=== PATIENT | female | born 1965 | race Caucasian/White ===

== ENCOUNTER → 2016-09-01 | Outpatient (CLI) | payer OTHER ==
[2016-09-01 11:59] LABS: AUTOMATED NEUTROPHIL # 2.9 TH/MM3 (1.8-7.7); BASOPHIL # 0.1 TH/MM3 (0-0.2); BASOPHIL % 0.9 % (0.0-2.0); EOSINOPHIL # 0.5 TH/MM3 (0-0.4); EOSINOPHIL % 8.1 % (0.0-4.0); HEMATOCRIT 40.2 % (35.0-46.0); HEMO FLAGS DIFF FINAL; LYMPH % 28.5 % (9.0-44.0); LYMPHOCYTE # 1.6 TH/MM3 (1.0-4.8); MEAN CELL VOLUME 87.5 FL (80.0-100.0); MEAN CORPUSCULAR HEMOGLOBIN 29.3 PG (27.0-34.0); MEAN CORPUSCULAR HGB CONC 33.5 % (32.0-36.0); NEUT % 50.5 % (16.0-70.0); PLATELET COUNT 278 TH/MM3 (150-450); RED CELL DISTRIBUTION WIDTH 13.2 % (11.6-17.2); WHITE BLOOD COUNT 5.7 TH/MM3 (4.0-11.0)
[2016-09-01 12:03] LABS: BLOOD, URINE NEG (NEG); GLUCOSE,URINE NEG (NEG); KETONE, URINE NEG (NEG); NITRITE,URINE NEG (NEG); SQUAMOUS EPITHELIAL CELL URINE <1 /hpf (0-5); URINE COLOR LIGHT-YELLOW (YELLW/STRAW)
[2016-09-01 12:22] LABS: BICARBONATE 26.7 MEQ/L (21.0-32.0); POTASSIUM 4.3 MEQ/L (3.5-5.1)
== END ==
LOC: CPRE 10:26
PROVIDERS: ATTEND Obstetrics & Gynecology
DX: Z01.812 Encounter for preprocedural laboratory examination (principal); N80.9 Endometriosis, unspecified
CPT/HCPCS: 36415; 80048; 81001; 84703; 85025

== ENCOUNTER → 2016-09-09 | Day surgery (SDC) | payer OTHER ==
[~2016-09-09] VITALS: Ht 175.3 cm; Wt 76.0 kg
[~2016-09-09] MED LIST: *HYDROmorphone PF 1 MG VIAL PERIprocedural Use ONLY ONE; *morphine SULFATE 8 MG/ML PERIprocedure ONLY ONE; ACETAMINOPHEN 1000 MG/100 ML VIAL IV ONE; ACETAMINOPHEN/HYDROcodone 325 MG/5 MG TAB PO PRN; APREPITANT 40 MG CAP PO SCH; BUPIVACAINE HCL PF 0.25% 30 ML VIAL ONE; CHLORHEXIDINE GLUCONATE 2 % 1 PACK (2 CLOTHS) TOPICAL PRN; DEXAMETHASONE SOD PHOS 4 MG/ML VIAL ONE; DO NOT ADM ANY ANTICOAGULANT DRUGS PRN; DOCUSATE SODIUM 100 MG CAP PO SCH; FAMOTIDINE 20 MG/2 ML VIAL ONE; HYDROmorphone HCL PF 1 MG/ML VIAL IVP PRN; IBUPROFEN 600 MG TAB PO PRN; INSULIN HUMAN REGULAR 1,000 UNITS/10 ML VIAL SQ PRN; KETOROLAC TROMETHAMINE 30 MG/ML (IVP) VIAL IVP PRN; KETOROLAC TROMETHAMINE 60 MG/2 ML (IM) VIAL IM ONE; LACTATED RINGER'S 1000 ML INJ 1,000 ML IV ONE; LACTATED RINGER'S 1000 ML INJ 1,000 ML IV SCH; LACTATED RINGER'S 1000 ML IV PRN; LORazepam 0.5 MG TAB PO PRN; METOPROLOL TARTRATE 25 MG TAB PO PRN; MIDAZOLAM HCL 2 MG/2 ML VIAL ONE; NEOSTIGMINE 3 MG/3 ML SYR IV ONE; ONDANSETRON HCL 4 MG/2 ML VIAL IV PUSH ONE; ONDANSETRON HCL 4 MG/2 ML VIAL IVP PRN; POVIDONE IODINE 5% (ANTISEPSIS KIT) 4 APPLICATIONS EACH NARE PRN; PROMETHAZINE INJ 25 MG/ML VIAL ONE; PROPOFOL 200 MG/20 ML AMP IV ONE; SODIUM CHLORID 0.9% 500 ML IV PRN; SODIUM CHLORIDE 0.9% FLUSH 10 ML FLUSH IV FLUSH PRN; SODIUM CHLORIDE 0.9% FLUSH 10 ML FLUSH IV FLUSH SCH; VECURONIUM BROMIDE 10 MG VIAL IV ONE; ceFAZolin 2 GM PREMIX 50 ML IV SCH; ePHEDrine/NS 25 MG/5 ML SYR IV ONE; fentaNYL CITRATE 250 MCG/5 ML AMP ONE; oxyCODONE/ACETAMINOPHEN 5 MG/325 MG TAB PO PRN
[2016-09-09 06:36] VITALS: BP 121/75; PULSE 66; RESP 16; TEMP 97.3; O2SAT 100
[2016-09-09 13:48] VITALS: BP 105/63; PULSE 77; RESP 16; TEMP 97.6; O2SAT 100
--- NOTE | 2016-09-10 07:36 | MP ---
cc: BALDOMERO ALLEN M.D., WESLEY M.D. DATE OF SURGERY 09/09/2016 PREOPERATIVE DIAGNOSIS Patient with chronic pelvic pain, history of endometriosis, previous left oophorectomy. PROCEDURE Exam under anesthesia, operative laparoscopy with total laparoscopic hysterectomy, right salpingo-oophorectomy, lysis of adhesions. POSTOPERATIVE DIAGNOSIS Patient with chronic pelvic pain, history of endometriosis, previous left oophorectomy. SURGEON Baldomero Allen MD ANESTHESIA General ESTIMATED BLOOD LOSS 50 cc DRAINS Leos to gravity SURGICAL SPECIMEN Included right tube and ovary uterus and cervix. OPERATIVE FINDINGS The patient had previous surgical scars from her left salpingo-oophorectomy. There was some minimal distortion of the right tube and ovary most likely secondary to endometriosis, but no significant distortion or adhesions. The patient had normal-appearing bladder. Both ureters were peristalsing and normal bilaterally. There was previous scar and adhesions involving the left sidewall and there was a small cystic lesion on the right ovary possibly an endometrioma. Upper quadrants appeared normal. There was some minimal scarring of the liver edge, otherwise no significant abdominal findings. INDICATIONS FOR PROCEDURE Patient with a chronic history of pelvic pain and back pain has a previous known history of endometriosis and previous left oophorectomy. After discussing the options and alternatives, the patient elected for definitive hysterectomy with removal of the remaining ovary and tube. The patient preoperatively received Ancef 2 grams intravenously. PROCEDURE DESCRIPTION The patient was taken to the operating room, under general anesthesia had an endotracheal tube placed. She was carefully positioned in the dorsolithotomy position using Jim stirrups with sequentials placed on the lower extremities. She was prepped and draped. Time-out was conducted, agreed by all present in the room. Procedure initiated by placing a Leos catheter under sterile technique. The patient was then placed in slight Trendelenburg positioning. A bivalve retractor was used to examine the cervix which was a medium sized. A V-Care device was utilized. Cervix was secured with a single-tooth tenaculum and placement of the V-Care was accomplished without difficulty. During the removal of the vaginal retractors, the patient developed an episodic bradycardia. Heart rate was in the mid 20s, responded to positioning and atropine. The patient had an arterial waveform monitor placed which was normal. The patient's vital signs remained normal. After resolution of the bradycardic episode. The procedure continued by draping the patient completely and examining the abdomen. 0.25% plain Marcaine was used to inject in the incision sites. First, the umbilical port was injected and then an incision was made through the umbilical plate. A 5 mm trocar was used to make entry into the perineal cavity which was accomplished without difficulty. Insufflation of the abdominal cavity was made at low pressure. Examination of the pelvis required placement and steep Trendelenburg positioning and again the patient's vital signs were stable. The accessory ports were placed using 8 mm trocars, two on the right flank and one on the right. The umbilical port was increased to a #12 trocar for the da Daniela camera. The da Daniela patient cart was then side docked with a #2 arm on the left and a #1 and #3 on the right. A bipolar [place] grasper was placed in #1 arm. A fenestrated grasper was placed in #3. The #2 arm had a monopolar scissor. A 0 degrees lens was used for the camera. No collisions or conflicts with the operative arms were noted. Attention was placed at the surgeon cart where visualization of pelvic anatomy was made. Good identification of all landmarks was made and then dissection initiated by dividing the round ligaments and then opening the broad ligament anteriorly allowing the bladder to fall away from the lower uterine segment. The infundibular pelvic vessels were easily skeletonized and ligated hemostatically on the right allowing removal of the ovary and tube with a uterine specimen. Dissection continued by skeletonizing the uterine artery vein on the right side and then hemostatically creating a pedicle and then attention was directed to the contralateral side where the absent left tube and ovary were noted. There were some adhesions involving the rectosigmoid which were taken down by a simple sharp dissection allowing visualization of the retroperitoneal space on the left after dividing the round ligament hemostatically. This allowed skeletonization of the uterine artery and vein which were then identified and clamped hemostatically the pedicle and then after isolation of the uterine artery and vein bilaterally, a colpotomy incision was made posteriorly and then was connected anteriorly 360 degrees allowing removal of the uterus complete with the cervix, tube and ovary through the vaginal opening. A #1 Stratafix suture was then introduced allowing closure of the vaginal cuff. The #2 arm was replaced with a needle test car driver and then the integrity of the closure was tested with a sponge stick by the ice cream freezer assistant. No defects or openings in the cuff were noted. Hemostasis was noted throughout the case. The suture was trimmed flush with the level of the peritoneum and the suture needle was secured. Once this was complete, the da Daniela patient cart was undocked and straight laparoscopy was used to retrieve the suture needle. Irrigation of the pelvis was conducted, no active bleeding or hematoma formation was identified. Both ureters were peristalsing normally with an intact bladder and clear urine was draining throughout. Observation off pressure revealed again good hemostasis. After confirmation of the hemostasis, a full count was made and correct. The umbilical port was then closed with a crossbow using a #1 Vicryl suture with good closure. Once the umbilical port was closed, the remaining 8 mm trocar ports were removed. Decompression of the pneumoperitoneum was accomplished prior to removal of all ports. A full and final count was made and correct. The skin incisions were closed with a subcuticular suture of 4-0 Monocryl and then Steri-Strips applied over the incision. The vaginal wall was dry. There was no active bleeding from the cuff and again clear urine was draining throughout the entire case. Again, vital signs were stable. The patient was extubated and taken to the recovery room on room air and the final count was correct. MD FCO Ast[place]/TING /10:17 AM /7:20 AM
== END | disposition home or self-care (01) ==
LOC: HSDC 05:54
PROVIDERS: ATTEND Obstetrics & Gynecology
DX: N72 Inflammatory disease of cervix uteri (principal); N85.01 Benign endometrial hyperplasia; N83.01 Follicular cyst of right ovary; Z98.51 Tubal ligation status
CPT/HCPCS: 00840; 58571; 86850; 86900; 86901; 88307; J0131; J0690; J1100; J1170; J1885; J2250; J2270; J2405; J2550; J2710; J3010; J7120; J8501